=== PATIENT | female | born 1965 | race Caucasian/White ===

== ENCOUNTER → 2017-03-27 | Outpatient (CLI) | payer OTHER ==
--- NOTE | 2017-03-28 11:04 | Diagnostic Imaging Report ---
EXAMINATION: Bilateral screening mammogram 2D views with tomosynthesis. The current study was also evaluated with a Computer Aided Detection (CAD) system. INDICATION: Screening. PERSONAL HISTORY: No current complaints stated on the questionnaire. COMPARISON: 08/13/2015. FINDINGS: The breasts are composed of heterogeneously dense parenchyma which may decrease mammographic sensitivity. There is no mass, architectural distortion, or suspicious cluster of calcifications. Allowing for technique and positional differences, no suspicious change is seen. IMPRESSION: No significant change. ACR BI-RADS Category 2: Benign findings. Result letter will be mailed to the patient. Note: At least 10% of breast cancer is not imaged by mammography. Dictated by: Dictated on workstation # [id number]
== END ==
LOC: RAD 10:48
PROVIDERS: ATTEND Family Medicine
DX: Z12.31 Encounter for screening mammogram for malignant neoplasm of breast (principal)
CPT/HCPCS: 77067

== ENCOUNTER → 2018-03-29 | Outpatient (CLI) | payer OTHER ==
--- NOTE | 2018-03-30 09:56 | Diagnostic Imaging Report ---
INDICATION: Routine screening. COMPARISON: 03/27/2017 and 08/13/2015. TECHNIQUE: 2D and 3D bilateral screening mammography was performed with CAD. FINDINGS: Both breasts remain heterogeneously dense, limiting the sensitivity of mammography. The parenchymal pattern is stable. No mass or malignant appearing microcalcifications are seen. The axillae are unremarkable. IMPRESSION: No mammographic features suspicious for malignancy are identified. ACR BI-RADS Category 1: Negative. Result letter will be mailed to the patient. Note: At least 10% of breast cancer is not imaged by mammography. Dictated by: Dictated on workstation # [id number]
== END ==
LOC: RAD 13:28
PROVIDERS: ATTEND Family Medicine
DX: Z12.31 Encounter for screening mammogram for malignant neoplasm of breast (principal)
CPT/HCPCS: 77067

== ENCOUNTER → 2020-01-15 | Outpatient (CLI) | payer OTHER ==
--- NOTE | 2020-01-16 16:58 | Diagnostic Imaging Report ---
Digital mammogram. Bilateral screening This study was compared to the prior exams of 03/29/2018, 03/27/2017 and 08/13/2015. At this time there are no current complaints. The current study was also evaluated with a Computer Aided Detection (CAD) system. FINDINGS: The fibroglandular tissue in both breasts is heterogeneously dense. This does limit the sensitivity of this exam. Overall, there does not appear to have been any significant change when compared to the prior study. No primary or secondary sign of malignancy is noted. IMPRESSION: There is no radiographic evidence for malignancy. ACR BI-RADS Category 1: Negative. Result letter will be mailed to the patient. Note: At least 10% of breast cancer is not imaged by mammography. Dictated by: Dictated on workstation # [id number]
== END ==
LOC: RAD 14:45
PROVIDERS: ATTEND Family Medicine
DX: Z12.31 Encounter for screening mammogram for malignant neoplasm of breast (principal)
CPT/HCPCS: 77063; 77067

== ENCOUNTER 2020-01-29 05:45 | Outpatient (RCR) | payer OTHER ==
[~2020-01-29] VITALS: Ht 170 cm; Wt 75.0 kg
[2020-01-30] MEDS ORDERED: LEVO25TA2 PO (14:11)
== END 2020-04-28 | disposition home or self-care (01) ==
LOC: PREOP 05:45 → EDSTATUS 09:00
PROVIDERS: ATTEND Surgery
DX: Z01.818 Encounter for other preprocedural examination (principal)

== ENCOUNTER 2021-07-28 11:35 | Observation (INO) | payer BC ==
[~2021-07-28] VITALS: Ht 170 cm; Wt 73.6 kg
[~2021-07-28 11:35] MED LIST: LEVO25TA2 PO
--- NOTE | 2021-07-28 12:10 | ED Abdominal Pain ---
General Chief Complaint: Abdominal/GI Problems Stated Complaint: ABD PAIN Source of Information: Patient Exam Limitations: No Limitations History of Present Illness Date Seen by Provider: Jul 28, 2021 Time Seen by Provider: 12:09 Initial Comments To ER with right-sided lower abdominal pain getting progressively worse over the past 72 hours. She initially thought it was just related to moving and it was muscular soreness. However she has developed low-grade fever, nausea without vomiting. No urinary symptoms. History of a tummy tuck but otherwise no abdominal surgeries. Has not eaten since last night. She is otherwise healthy except for history of hypothyroidism for which she takes Synthroid as her only medication. Timing/Duration: 1-2 Days Severity/Quality: Moderate Location: RLQ Radiation: No Radiation Activities at Onset: None Associated Symptoms: Nausea/Vomiting Allergies and Home Medications Allergies Coded Allergies: No Known Drug Allergies (Unverified , 01/30/20) Patient Home Medication List Home Medication List Reviewed: Yes Levothyroxine Sodium (Synthroid) Unknown Strength Tablet, Unknown Dose PO, (Reported) Entered as Reported by: SPENCER MELGOZA on 01/30/20 1411 Review of Systems Review of Systems Constitutional: see HPI EENTM: No Symptoms Reported Respiratory: No Symptoms Reported Cardiovascular: No Symptoms Reported Gastrointestinal: See HPI, Abdominal Pain, Nausea Genitourinary: No Symptoms Reported Musculoskeletal: no symptoms reported Skin: no symptoms reported Psychiatric/Neurological: No Symptoms Reported Endocrine: No Symptoms Reported Hematologic/Lymphatic: No Symptoms Reported Past Zyjmcci-Zpqcrt-Hnqafw Hx Seasonal Allergies Seasonal Allergies: Yes Past Medical History Surgeries: Yes Thyroidectomy Respiratory: No Cardiac: No Neurological: No Sexually Transmitted Disease: No HIV/AIDS: No Genitourinary: No Gastrointestinal: Yes Chronic Constipation Musculoskeletal: No Endocrine: Yes Hypothyroidsim HEENT: Yes (GLASSES/CONTACTS) Loss of Vision: Denies Hearing Impairment: Denies Cancer: Yes Thyroid Did You Recieve Any Treatments: Yes What Type of Treatment Did You: Surgical Intervention Psychosocial: No Integumentary: No Blood Disorders: No Adverse Reaction/Blood Tranf: No (N/A) Physical Exam Vital Signs Vital Signs - First Documented 07/28/21 12:00 Temp 37.6 Pulse 81 Resp 16 B/P (MAP) 134/74 (94) Pulse Ox 97 O2 Delivery Room Air Capillary Refill : Height/Weight/BMI Height: '" Weight: lbs. oz. kg; 25.95 BMI Method: General Appearance: WD/WN, no apparent distress HEENT: PERRL/EOMI, normal ENT inspection Respiratory: normal breath sounds, no respiratory distress, no accessory muscle use Cardiovascular: regular rate, rhythm, no murmur Gastrointestinal: normal bowel sounds, soft; No distended; guarding, tenderness Extremities: normal range of motion, non-tender Neurologic/Psychiatric: alert, normal mood/affect, oriented x 3 Skin: normal color, warm/dry Progress/Results/Core Measures Results/Orders Lab Results Laboratory Tests Test 07/28/21 12:03 07/28/21 13:17 Range/Units White Blood Count 9.4 4.3-11.0 10^3/uL Red Blood Count 4.11 3.80-5.11 10^6/uL Hemoglobin 12.7 11.5-16.0 g/dL Hematocrit 38 35-52 % Mean Corpuscular Volume 93 80-99 fL Mean Corpuscular Hemoglobin 31 25-34 pg Mean Corpuscular Hemoglobin Concent 33 32-36 g/dL Red Cell Distribution Width 12.2 10.0-14.5 % Platelet Count 238 130-400 10^3/uL Mean Platelet Volume 10.6 9.0-12.2 fL Immature Granulocyte % (Auto) 0 % Neutrophils (%) (Auto) 81 H 42-75 % Lymphocytes (%) (Auto) 11 L 12-44 % Monocytes (%) (Auto) 7 0-12 % Eosinophils (%) (Auto) 1 0-10 % Basophils (%) (Auto) 0 0-10 % Neutrophils # (Auto) 7.6 1.8-7.8 10^3/uL Lymphocytes # (Auto) 1.1 1.0-4.0 10^3/uL Monocytes # (Auto) 0.6 0.0-1.0 10^3/uL Eosinophils # (Auto) 0.1 0.0-0.3 10^3/uL Basophils # (Auto) 0.0 0.0-0.1 10^3/uL Immature Granulocyte # (Auto) 0.0 0.0-0.1 10^3/uL Sodium Level 139 135-145 MMOL/L Potassium Level 3.6 3.6-5.0 MMOL/L Chloride Level 102 98-107 MMOL/L Carbon Dioxide Level 24 21-32 MMOL/L Anion Gap 13 5-14 MMOL/L Blood Urea Nitrogen 13 7-18 MG/DL Creatinine 0.73 0.60-1.30 MG/DL Estimat Glomerular Filtration Rate 98 BUN/Creatinine Ratio 18 Glucose Level 83 70-105 MG/DL Calcium Level 9.3 8.5-10.1 MG/DL Corrected Calcium 9.1 8.5-10.1 MG/DL Total Bilirubin 0.4 0.1-1.0 MG/DL Aspartate Amino Transf (AST/SGOT) 16 5-34 U/L Alanine Aminotransferase (ALT/SGPT) 15 0-55 U/L Alkaline Phosphatase 65 40-136 U/L Total Protein 7.1 6.4-8.2 GM/DL Albumin 4.3 3.2-4.5 GM/DL My Orders Orders - CHAD CALERO APRN Cbc With Automated Diff (07/28/21 12:06) Comprehensive Metabolic Panel (07/28/21 12:06) Ua Culture If Indicated (07/28/21 12:06) Ct Abd/Pelv W (Appendicitis) (07/28/21 12:06) Lactated Ringers (Lr 1000 Ml Iv Solution (07/28/21 12:15) Fentanyl Inj (Sublimaze Injection) (07/28/21 12:15) Ondansetron Injection (Zofran Injectio (07/28/21 12:15) Iohexol Injection (Omnipaque 350 Mg/Ml 1 (07/28/21 12:30) Received Contrast (Hold Metformin- Contr (07/28/21 12:30) Ns (Ivpb) (Sodium Chloride 0.9% Ivpb Bag (07/28/21 12:30) Sodium Chloride Flush (Catheter Flush Sy (07/28/21 12:30) Piperacillin Sodium/Tazobactam (Zosyn Vi (07/28/21 13:15) Fentanyl Inj (Sublimaze Injection) (07/28/21 13:15) Medications Given in ED Current Medications Medications Dose Ordered Sig/Sam Route Start Time Stop Time Status Last Admin Dose Admin Fentanyl Citrate 50 mcg ONCE ONCE IVP 07/28/21 12:15 07/28/21 12:16 DC 07/28/21 12:19 50 MCG Iohexol 100 ml ONCE ONCE IV 07/28/21 12:30 07/28/21 12:31 DC 07/28/21 12:53 88 ML Ondansetron HCl 8 mg ONCE ONCE IVP 07/28/21 12:15 07/28/21 12:16 DC 07/28/21 12:21 8 MG Sodium Chloride 100 ml ONCE ONCE IV 07/28/21 12:30 07/28/21 12:31 DC 07/28/21 12:53 80 ML Vital Signs/I&O 07/28/21 12:00 Temp 37.6 Pulse 81 Resp 16 B/P (MAP) 134/74 (94) Pulse Ox 97 O2 Delivery Room Air Departure Communication (Admissions) 1327-I spoke with Dr. ALICIA, will admit on Cipro Flagyl nausea pain medication as well as IV fluids. Impression Primary Impression: Appendicitis Disposition: ADMITTED INPATIENT Condition: Stable Admissions Decision to Admit Reason: Admit from ER (General) Decision to Admit/Date: Jul 28, 2021 Time/Decision to Admit Time: 12:58 Departure-Patient Inst. Referrals: LIGIA JOLLY DO (PCP/Family) Primary Care Physician CHAD CALERO JUTE BAG SEWER Jul 28, 2021 12:10
[2021-07-28 12:14] LABS: BASOPHILS % (AUTO) 0 % (0-10); EOSINOPHILS # (AUTO) 0.1 10^3/uL (0.0-0.3); EOSINOPHILS % (AUTO) 1 % (0-10); HEMATOCRIT 38 % (35-52); HEMOGLOBIN 12.7 g/dL (11.5-16.0); LYMPHOCYTES # (AUTO) 1.1 10^3/uL (1.0-4.0); LYMPHOCYTES % (AUTO) 11 % (12-44); MEAN CORPUSCULAR HEMOGLOBIN 31 pg (25-34); MEAN CORPUSCULAR HGB CONC 33 g/dL (32-36); MEAN CORPUSCULAR VOLUME 93 fL (80-99); MEAN PLATELET VOLUME 10.6 fL (9.0-12.2); MONOCYTES # (AUTO) 0.6 10^3/uL (0.0-1.0); MONOCYTES % (AUTO) 7 % (0-12); NEUTROPHILS # (AUTO) 7.6 10^3/uL (1.8-7.8); NEUTROPHILS % (AUTO) 81 % (42-75); PLATELET COUNT 238 10^3/uL (130-400); WHITE BLOOD COUNT 9.4 10^3/uL (4.3-11.0)
[2021-07-28] MEDS ORDERED: LACTATED RINGERS 1,000 ML IV SCH (12:15)
[2021-07-28] MEDS ORDERED: ONDANSETRON 4 MG/2 ML (SDV) Z0FRAN IVP ONE (12:15)
[2021-07-28] MEDS ORDERED: fentaNYL INJ 100 MCG/2 ML AMP IVP ONE ×2 (12:15→13:15)
[2021-07-28 12:19] LABS: ALBUMIN 4.3 GM/DL (3.2-4.5); POTASSIUM 3.6 MMOL/L (3.6-5.0)
[2021-07-28 12:20] LABS: CALCIUM 9.3 MG/DL (8.5-10.1)
[2021-07-28 12:21] LABS: TOTAL PROTEIN 7.1 GM/DL (6.4-8.2)
[2021-07-28 12:23] LABS: BILIRUBIN,TOTAL 0.4 MG/DL (0.1-1.0)
[2021-07-28 12:25] LABS: CREATININE SERUM 0.73 MG/DL (0.60-1.30)
[2021-07-28] MEDS ORDERED: NS 100 ML (IVPB) BAG IV ONE (12:30)
[2021-07-28] MEDS ORDERED: CATHETER FLUSH 10 ML SYR IV PRN (12:30)
[2021-07-28] MEDS ORDERED: IOHEXOL 350 MG/ML 100 ML (OMNIPAQUE 350) VIAL IV ONE (12:30)
[2021-07-28] MEDS ORDERED: HOLD METFORMIN - RECEIVED CONTRAST 20 ML VIAL IV SCH (12:30)
[2021-07-28] MEDS ORDERED: PIPERACILLIN SODIUM/TAZOBACTAM 4.5 GM in NS (IVPB) 100 ML IV ONE (13:15)
--- NOTE | 2021-07-28 13:23 | Diagnostic Imaging Report ---
PROCEDURE: CT abdomen and pelvis with contrast, rule out appendicitis. TECHNIQUE: Multiple contiguous axial images were obtained through the abdomen and pelvis after the administration of intravenous contrast. All CT scans use one or more of the following dose optimizing techniques: automated exposure control, MA and/or KvP adjustment based on patient size and exam type or iterative reconstruction. INDICATION: Right lower quadrant pain, nausea, and fever. COMPARISON: No relevant comparison. FINDINGS: The thick-walled tubular structure, believed to be the inflamed appendix, measures a maximal outer wall to outer wall diameter of 14.5 mm as seen on image 118 series 2. There are regional inflammatory changes, stranding, and edema of the adjacent fat. No abscess. No free air or convincing evidence for transmural perforation; however, there is substantial regional edema and a small amount of free fluid along the cul-de-sac and right adnexal region. The small bowel loops in the left hemiabdomen are mildly ectatic. This may be a mild reactive ileus or partial small bowel obstruction. The liver, gallbladder, bile ducts, spleen, adrenals, and pancreas are all unremarkable. No basilar pleural fluid. There is no hydroureteronephrosis. The urinary bladder is unremarkable. The uterus is unremarkable. IMPRESSION: 1. Appendicitis with small volume free fluid. Mild dilatation of the small bowel loops proximally, likely a mild ileus; however, this could be early partial obstruction as well. No free gas or loculated fluid collection. 2. No other acute abnormality. Dictated by: Dictated on workstation # [id number]
[2021-07-28 13:26] LABS: BILIRUBIN,URINE NEGATIVE (NEGATIVE); CLARITY,URINE CLEAR; COLOR,URINE YELLOW; GLUCOSE, URINE (UA) NEGATIVE (NEGATIVE); KETONES,URINE 1+ (NEGATIVE); LEUKOCYTE ESTERASE ,URINE NEGATIVE (NEGATIVE); NITRITE,URINE NEGATIVE (NEGATIVE); PH,URINE 5.5 (5-9); PROTEIN,URINE NEGATIVE (NEGATIVE)
[2021-07-28 14:00] LABS: WBC,URINE RARE /HPF
[2021-07-28 14:01] LABS: BACTERIA,URINE NEGATIVE /HPF; SQUAMOUS EPITHELIAL CELL,UR 0-2 /HPF
[2021-07-28] MEDS ORDERED: CATHETER FLUSH 10 ML SYR IVP PRN (15:00)
[2021-07-28] MEDS: LACTATED RINGERS 1,000 ML IV SCH (15:07)
[2021-07-28] MEDS: CIPROFLOXACIN 400 MG/D5W 200 ML (PRE-MIX) IV SCH (15:07)
[2021-07-28] MEDS: metroNIDAZOLE 500 MG/100 ML IVPB (PRE-MIX) IV SCH ×2 (15:07→23:39)
[2021-07-28] MEDS: fentaNYL INJ 100 MCG/2 ML AMP IV PRN ×3 (15:44→21:29)
[2021-07-28 16:00] VITALS: BP 111/58
[2021-07-28] MEDS ORDERED: LEVO150T PO (16:06)
[2021-07-28] MEDS ORDERED: MAGN1TAB PO (16:06)
[2021-07-28] MEDS ORDERED: CHOL-34 PO (16:06)
[2021-07-28] MEDS ORDERED: NFBIOT1000 PO (16:06)
[2021-07-28] MEDS ORDERED: LEVO175T2 PO (16:06)
[2021-07-28] MEDS ORDERED: NAPR220T66 PO (16:06)
[2021-07-28] MEDS: ONDANSETRON 4 MG/2 ML (SDV) Z0FRAN IV PRN (18:09)
[2021-07-28 20:00] VITALS: BP 109/51
--- NOTE | 2021-07-28 21:14 | Progress Note-Pre Operative ---
Pre-Operative Progress Note H&P Reviewed The H&P was reviewed, patient examined and no changes noted. Date Seen by Provider: Jul 28, 2021 Time Seen by Provider: 21:00 Date H&P Reviewed: Jul 28, 2021 Time H&P Reviewed: 21:00 Pre-Operative Diagnosis: non-complicated acute appendicitis ANTHONY ALICIA MD Jul 28, 2021 21:14
--- NOTE | 2021-07-28 21:26 | HISTORY AND PHYSICAL ---
DATE OF SERVICE: ATTENDING PRIMARY CARE PHYSICIAN: Ashley Trejo DO HISTORY OF PRESENT ILLNESS: The patient is a 56-year-old female who presented to the Emergency Department with right lower quadrant abdominal pain for the past 3 days. She states that she initially thought that this was due to muscle soreness. She reports that the pain persisted and she may have developed some low-grade fevers at home as well. She also reports that she has lost her appetite and had some mild nausea; however, no vomiting. She does report a history of constipation and does not report any issues with change in bowel habits as well as no red blood per rectum nor any dark tarry stools. A CT scan was performed, which did show dilatation of the appendix consistent with a noncomplicated appendicitis. PAST MEDICAL HISTORY: Hypothyroid. PAST SURGICAL HISTORY: Thyroidectomy. ALLERGIES: NO KNOWN DRUG ALLERGIES. MEDICATIONS: Levothyroxine daily. SOCIAL HISTORY: Negative smoke, negative alcohol. VITAL SIGNS: Temperature 36.5, blood pressure 109/51, pulse 87, respirations 18, pulse ox 99% on room air. REVIEW OF SYSTEMS: This is a well-nourished female currently in no acute distress. She is not experiencing any shortness of breath or difficulty breathing. No chest pain, palpitations, diaphoresis. Mild nausea, no vomiting. History of constipation. No change in bowel habits, no red blood per rectum, no dark tarry stools. No fever, chills, no recent inadvertent weight loss. All other review of systems negative. PHYSICAL EXAMINATION: CHEST: Clear. HEART: Regular. EXTREMITIES: No lower extremity edema, negative Homans sign. HEENT: No scleral icterus. NECK: No cervical lymphadenopathy. ABDOMEN: Soft, nondistended. There is pain at McBurney's point with voluntary guarding, no rebound, no hernias. SKIN: Warm, dry. LABORATORY DATA: WBC 9.4, hemoglobin 12.7, hematocrit 38, platelets 238. BUN 13, creatinine 0.73. Liver function enzymes are normal. Urinalysis normal. ASSESSMENT AND PLAN: A 56-year-old female with a noncomplicated acute appendicitis. The natural history of this disease process was explained to the patient as well as the risks and benefits of surgery. She is in full understanding of this and would like to proceed with a laparoscopic appendectomy, which we will proceed with on this admission. Job ID: [id number] DocumentID: [id number] Dictated Date: 07/28/2021 21:12:46 High School Director Date: 07/28/2021 21:25:34 Dictated By: ANTHONY ALICIA MD
[2021-07-28 23:52] VITALS: BP 97/54
[2021-07-29] VITALS (12 sets, daily range): BP systolic 89–160; BP diastolic 47–70
[2021-07-29] MEDS: fentaNYL INJ 100 MCG/2 ML AMP IV PRN ×3 (02:06→12:45)
[2021-07-29] MEDS: LACTATED RINGERS 1,000 ML IV SCH (02:24)
[2021-07-29] MEDS: CIPROFLOXACIN 400 MG/D5W 200 ML (PRE-MIX) IV SCH (02:24)
[2021-07-29 05:33] LABS: BASOPHILS % (AUTO) 0 % (0-10); EOSINOPHILS # (AUTO) 0.1 10^3/uL (0.0-0.3); EOSINOPHILS % (AUTO) 2 % (0-10); HEMATOCRIT 33 % (35-52); LYMPHOCYTES # (AUTO) 1.4 10^3/uL (1.0-4.0); LYMPHOCYTES % (AUTO) 19 % (12-44); MEAN CORPUSCULAR HEMOGLOBIN 31 pg (25-34); MEAN CORPUSCULAR HGB CONC 34 g/dL (32-36); MEAN CORPUSCULAR VOLUME 92 fL (80-99); MEAN PLATELET VOLUME 10.6 fL (9.0-12.2); MONOCYTES # (AUTO) 0.6 10^3/uL (0.0-1.0); MONOCYTES % (AUTO) 8 % (0-12); NEUTROPHILS # (AUTO) 5.2 10^3/uL (1.8-7.8); NEUTROPHILS % (AUTO) 71 % (42-75); PLATELET COUNT 205 10^3/uL (130-400); WHITE BLOOD COUNT 7.4 10^3/uL (4.3-11.0)
[2021-07-29 05:48] LABS: POTASSIUM 3.8 MMOL/L (3.6-5.0)
[2021-07-29 05:49] LABS: CALCIUM 8.6 MG/DL (8.5-10.1)
[2021-07-29 05:54] LABS: CREATININE SERUM 0.75 MG/DL (0.60-1.30)
[2021-07-29] MEDS: ONDANSETRON 4 MG/2 ML (SDV) Z0FRAN IV PRN (09:15)
[2021-07-29] MEDS: metroNIDAZOLE 500 MG/100 ML IVPB (PRE-MIX) IV SCH (09:20)
[2021-07-29] MEDS ORDERED: LIDOCAINE/EPI 2% 1:100,00 (XYLOCAINE) 20 ML VIAL ONE (10:20)
[2021-07-29] MEDS ORDERED: ceFAZolin INJECTION 1,000 MG VIAL IV ONE (10:30)
[2021-07-29] MEDS ORDERED: LACTATED RINGERS 1,000 ML IV PRN (11:00)
--- NOTE | 2021-07-29 11:22 | Progress Note-Post Operative ---
Post-Operative Progess Note Surgeon (s)/Gang Rider (s) Surgeon ANTHONY ALICIA MD Gang Rider: gurwinder tate SOW MANAGER Pre-Operative Diagnosis non-complicated acute appendicitis Post-Operative Diagnosis same Procedure & Operative Findings Date of Procedure 07/29/21 Procedure Performed/Findings laparoscopic appendectomy Anesthesia Type get Estimated Blood Loss Estimated blood loss (mL): minimal Specimens/Packing Specimens Removed appendix ANTHONY ALICIA MD Jul 29, 2021 11:22
[2021-07-29] MEDS ORDERED: HYDR-3817 PO (11:24)
--- NOTE | 2021-07-29 11:24 | Discharge Inst-Surgical ---
D/C Lap Instructions-MARAL New, Converted, or Re-Newed RX: RX on Chart Follow Up Appt in 2 weeks Activity as tolerated No driving for 24 hours No driving while on pain medications Incentive Spirometry use every 2 hours while awake Regular Diet Symptoms to Report: Fever over 101 degree F, Nausea/Vomiting Infection Signs and Symptoms to report: Increased redness, Foul odor of wound, Increased drainage Bathing instructions: May shower Operative Area Clean/Dry; Keep incision clean/dry If any problems/questions: Contact your physician or go to Emergency Room ANTHONY ALICIA MD Jul 29, 2021 11:24
[2021-07-29] MEDS ORDERED: HYDROcodone/APAP 7.5 MG/325 MG (LORTAB, LORCET PLUS) TABLET PO PRN (11:30)
--- NOTE | 2021-07-29 11:40 | Anesthesia-General Post-Op ---
General Patient Condition Mental Status/LOC: Same as Preop Cardiovascular: Satisfactory Nausea/Vomiting: Absent Respiratory: Satisfactory Pain: Controlled Complications: Absent Post Op Complications Complications None Follow Up Care/Instructions Patient Instructions None needed. Anesthesia/Patient Condition Patient Condition Patient is doing well, no complaints, stable vital signs, no apparent adverse anesthesia problems. No complications reported per nursing. NADER WHITLEY CRNA Jul 29, 2021 11:40
[2021-07-29] MEDS ORDERED: ONDANSETRON 4 MG/2 ML (SDV) Z0FRAN IVP PRN (11:45)
[2021-07-29] MEDS ORDERED: HYDROmorphone 2 MG/ML VIAL (DILAUDID) IV ONE (11:45)
[2021-07-29] MEDS ORDERED: MEPERIDINE (DEMEROL) INJ 50 MG/ML IVP ONE (11:45)
[2021-07-29] MEDS ORDERED: morphine INJ 10 MG/ML 1ML (SYR OR VIAL) IVP ONE (11:45)
[2021-07-29] MEDS ORDERED: PROMETHAZINE INJ 25 MG/ML (PHENERGAN) AMP IVP ONE (11:45)
--- NOTE | 2021-07-29 14:29 | OPERATIVE REPORT ---
DATE OF SERVICE: 07/29/2021 ATTENDING PRIMARY CARE PHYSICIAN: Dr. Ashley Trejo. PREOPERATIVE DIAGNOSIS: Acute appendicitis. POSTOPERATIVE DIAGNOSIS: Acute appendicitis, no perforation. PROCEDURE: Laparoscopic appendectomy. SURGEON: Anthony Alicia MD. WEB PROGRAMMER: Fazal Cartagena APRN. ANESTHESIA: General endotracheal. ESTIMATED BLOOD LOSS: Minimal. FINDINGS: Inflamed appendix with a fibrino-exudative material, no perforation. DISPOSITION: The patient tolerated the procedure well. INDICATIONS: The patient is a 56-year-old female who presented to the Emergency Department with right lower abdominal quadrant pain for the past 3 days. She thought this was initially due to muscle soreness from exercise. She states that the pain persisted, and she may have also developed some low-grade fevers at home as well. She also had reported losing her appetite and some mild nausea; however, no vomiting. She does have a history of constipation; however, does not report any major changes in bowel habits with no diarrhea as well as no red blood per rectum nor any dark tarry stools. A CT scan was performed, which did show dilatation of the appendix consistent with acute appendicitis. DESCRIPTION OF PROCEDURE: The patient was brought to the operating room, laid supine on the table. After adequate IV pain and sedative medications and general endotracheal intubation, the abdomen was prepped and draped in standard surgical fashion. A 0.5% Marcaine with epinephrine was used to anesthetize the left upper abdominal quadrant and a transverse skin incision made using a 15 blade. An 0 silk suture was applied to the medial aspect incision for retraction and a Veress needle inserted with a low opening pressure of 0 mmHg. The abdomen was then insufflated to 15 mmHg pressure. The Veress needle removed, and a 5 mm XL trocar placed followed by a 5 mm 45-degree angle laparoscope visualizing the peritoneal cavity. A 4-quadrant abdominal exploration was performed. There was an inflamed appendix with surrounding fibrino-exudative material walled off by the mesentery. There was no appendiceal perforation. No Meckel's diverticulum. Under direct visualization, we then proceeded to place a supraumbilical 10 mm port after the skin and peritoneal lining were anesthetized using 0.5% Marcaine with epinephrine and a transverse skin incision made using a 15 blade. In a similar manner, a suprapubic 5 mm port was placed. The patient was then placed in a Trendelenburg position as well as planed right side up, left side down. The appendix was then retracted towards the abdominal wall and a window created between the mesoappendix and the appendix at the cecal base using a [place] dissector. The appendix was then stapled and transected at the cecal base using a JEREMIAS 45 mm stapler with a 2.5 mm thickness load. The mesoappendix was then stapled and transected with the same stapler with a 2.0 mm thickness reload with visualization of good hemostasis. The appendix was then removed through the 10 mm port using an EndoCatch bag. The area was then irrigated and suctioned out with visualization of good hemostasis. The 10 mm port site fascia and peritoneum were then closed under direct visualization using a Bret-Misbah device and 0 Vicryl suture. The abdomen was desufflated and remaining ports removed. All skin incisions were closed using 4-0 Monocryl running subcuticular sutures. Wounds were then cleaned and covered with Dermabond. The patient tolerated the procedure well. We will start IV normal pain medication as well as a clear liquid diet. When she is tolerating clears, has good pain control with oral pain medications, ambulating well, we will discharge her home where she will be instructed to do no heavy lifting or exertion for the next two weeks. Job ID: [id number] DocumentID: [id number] Dictated Date: 07/29/2021 11:30:18 Tool Grinder Set Up Operator Gear Date: 07/29/2021 14:29:20 Dictated By: ANTHONY ALICIA MD
== END 2021-07-29 14:35 | disposition home or self-care (01) ==
LOC: EDUNIT# 11:35 → ER 11:36 → 4TH 13:25
PROVIDERS: ADMIT Surgery; ATTEND Surgery
DX: K35.80 Unspecified acute appendicitis (principal)
CPT/HCPCS: 36415; 74177; 80048; 80053; 81000; 84703; 85025; 88304; 96374; 96375; 96376; G0378